=== PATIENT | male | born 1985 | race Caucasian/White ===

== ENCOUNTER 2018-06-10 08:51 | Emergency (ER) | payer OTHER, MEDICAID, SELFPAY ==
[2018-06-10 09:04] VITALS: BP 155/98; PULSE 92; RESP 22; TEMP 36.8; O2SAT 100; BMI 57.9
--- NOTE | 2018-06-10 09:28 | ED.ABDPAIN ---
HPI - Abdominal Pain General Chief Complaint: Abdominal Pain Stated Complaint: ACUTE LOWER ABDOMINAL PAIN Time Seen by Provider: 06/10/18 09:03 Source: patient Mode of arrival: ambulatory Limitations: no limitations History of Present Illness HPI narrative: Patient is a 33-year-old male who presents with mid abdominal pain. Ongoing for the last 5 days. It hurts every time he moves. No fever no nausea vomiting or change in bowel habits. Sharp and stabbing in nature. He has never experienced anything like this in the past. MD complaint: abdominal pain Onset (ago): day(s) (5) Pain Consistency: constant Location: suprapubic Severity: moderate Quality: stabbing Radiation: none Migration to: no migration Relieving factors: rest Exacerbating factors: movement Associated symptoms: denies other symptoms Related Data Home Medications Medication Instructions Recorded Confirmed No Known Home Medications 06/10/18 06/10/18 Allergies Allergy/AdvReac Type Severity Reaction Status Date / Time amoxicillin [AMOXICILLIN] Allergy Mild Verified 06/10/18 09:08 Review of Systems Review of Systems GENERAL: Denies chills, fatigue, malaise, fever, sweats, travel HEENT: Denies sinus pain, ear pain, sore throat, difficulty swallowing, neck pain RESPIRATORY: Denies dyspnea, cough, wheezing, hemoptysis, sputum. CARDIOVASCULAR: Denies chest pain, palpitations, orthopnea, edema GASTROINTESTINAL: See HPI : Denies dysuria, frequency, incontinence, hematuria, urinary retention, flank pain. MUSCULOSKELETAL: Denies weakness, joint pain, or bony pain SKIN: No rash, no erythema, no pruritus NEUROLOGIC: Denies weakness, dizziness, headache, numbness, change in speech, confusion PSYCHIATRIC: No concerning psychosocial issues. 12 point review of systems is negative except for those stated above and HPI [facility] Medical History Obesity (Acute) Social History Smoking Status: Former smoker Exam Initial Vital Signs Initial Vital Signs: Vital Signs Temperature 98.2 F 06/10/18 09:04 Pulse Rate 92 H 06/10/18 09:04 Respiratory Rate 22 06/10/18 09:04 Blood Pressure 155/98 H 06/10/18 09:04 Pulse Oximetry 100 06/10/18 09:04 GENERAL: Alert well-appearing obese male in no acute distress HEENT: Head atraumatic,EOMI, pupils reactive, face symmetric, CARDIOVASCULAR: Regular rate and rhythm without murmurs, rubs or gallops. RESPIRATORY: Breath sounds equal bilaterally, no wheezes rales or rhonchi. ABDOMEN: Obesity soft mild suprapubic pain no guarding or rebound : No CVA tenderness EXTREMITIES: Normal range of motion, no clubbing or edema. Neurovascularly intact NEUROLOGICAL: Alert and oriented x4.Normal gait and speech. Cranial nerves II through XII grossly intact. SKIN: Warm, dry, no laceration, no petechiae, no rashes or lesions. Course Orders Ordered: ED Orders 06/10/18 09:41 Complete Blood Count AUTO DIFF Stat Comprehensive Metabolic Panel Stat Lipase Stat Partial Thromboplastin Time Stat Prothrombin Time INR Stat 06/10/18 10:10 CT abdomen pelvis w con Stat Discontinued Medications Ketorolac Tromethamine (Toradol) 30 mg IV NOW ONE Stop: 06/10/18 09:54 Last Admin: 06/10/18 10:06 Dose: 30 mg Vital Signs - 8 hr 06/10/18 11:16 06/10/18 12:37 06/10/18 13:15 Pulse Rate 94 H 94 H 94 H Respiratory Rate 19 19 20 Blood Pressure 134/80 Blood Pressure [Left Wrist] 142/55 H 145/69 H Pulse Oximetry 100 97 100 MDM - Abdominal Pain Lab Data Attestation: I reviewed the patient's lab results. Result diagrams: 06/10/18 09:41 06/10/18 09:41 Lab Results 06/10/18 06/10/18 06/10/18 Range/Units 09:41 09:41 09:41 WBC 9.1 (4.5-11.0) X10^3/uL RBC 5.16 (4.5-5.9) X10^6/uL Hgb 15.0 (13.5-17.5) g/dL Hct 44.3 (41-53) % MCV 85.8 (80-100) fL MCH 29.0 (26-34) PG MCHC 33.8 (30-36) % RDW 13.1 (11.6-14.8) % Plt Count 247 (150-400) X10^3/uL Neut % (Auto) 54.9 (50-75) % Lymph % (Auto) 33.1 (25-40) % [place] % (Auto) 7.3 (3-14) % Eos % (Auto) 3.9 (2-4) % Baso % (Auto) 0.8 (0-2) % Neut # (Auto) 5000 (3582-3578) /uL PT 12.4 (10.1-12.7) SECONDS INR 1.1 (0.9-1.3) APTT 34 (26.4-36.2) SECONDS Sodium 140 (137-145) mmol/L Potassium 4.2 (3.4-5.1) mmol/L Chloride 102 (98-107) mmol/L Carbon Dioxide 27 (22-32) mmol/L BUN 11 (9-20) mg/dL Creatinine 0.70 (0.66-1.25) mg/dL Estimated GFR > 60.0 (>60) mL/min BUN/Creatinine Ratio 15.7 (6-22) Glucose 96 (70-100) mg/dL Calcium 9.5 (8.4-10.2) mg/dL Total Bilirubin 1.2 (0.2-1.3) mg/dL AST 27 (17-59) IU/L ALT 34 (21-72) IU/L Alkaline Phosphatase 32 L (38-126) U/L Total Protein 8.2 (6.3-8.2) g/dL Albumin 4.6 (3.5-5.0) g/dL Globulin 3.6 (1.7-4.1) g/dL Albumin/Globulin Ratio 1.3 (1.0-2.8) Lipase 27 (23-300) U/L Point of care testing: Urine Dip Bedside Urine Glucose Negative Bedside Urine Bilirubin - Negative Bedside Urine Ketone - Negative Urine Specific [place] 1.015 Bedside Urine Occult Blood - Negative Bedside Urine pH 8.0 Bedside Urine Protein - Negative Bedside Urine Urobilinogen +/- 1mg Bedside Urine Nitrite - Negative Bedside Urine Leukocytes - Negative Esterase Imaging Data CT scan - abdomen: Radiologist's impression: PROCEDURE: CT ABDOMEN PELVIS W CON INDICATIONS: A 33-year-old man with mid abdominal pain. TECHNIQUE: After the administration of intravenous contrast, 5 mm thick sections acquired from the diaphragm to the symphysis. 5 mm coronal and sagittal reformats were acquired. For radiation dose reduction, the following was used: automated exposure control, adjustment of mA and/or kV according to patient size. COMPARISON: None. FINDINGS: Image quality: Excellent. ABDOMEN: Lung bases: Lung bases are clear. Heart size is normal. Solid organs: There is diffuse hepatic fatty infiltration. Liver is normal in size and enhancement. Gallbladder is normal. Biliary system is non dilated. Pancreas enhances normally. Spleen is normal in size and enhancement. No adrenal nodules. Kidneys demonstrate normal size and enhancement, without hydronephrosis. Peritoneum and bowel: There is a 1.5 x 2.1 cm oval-shaped fat lobule demonstrating peripheral hyperdensity and enhancement with associated inflammatory stranding, likely caused by omental infarct (fat necrosis of omentum). A differential diagnosis is epiploic appendagitis or less likely, acute diverticulitis. Bowel loops demonstrate normal wall thickness and caliber. No free fluid or air. Nodes and vessels: No retroperitoneal or mesenteric adenopathy by size criteria. Aorta and inferior vena cava are normal in size. Miscellaneous: No ventral hernias. PELVIS: Genitourinary: Bladder wall thickness is normal. Miscellaneous: No inguinal hernias or adenopathy. Bones: No suspicious bony lesions. No vertebral body compression fractures. IMPRESSION: 1. There is a 1.5 x 2.1 cm oval-shaped fat lobule with peripheral hyperdensity/enhancement and mild inflammatory stranding. The CT findings are consistent with omental infarct. A differential diagnosis is epiploic appendagitis, or less likely, acute diverticulitis. Dictated by: Mary Faulkner M.D. on 06/10/2018 at 11:17 MDM Narrative Medical decision making narrative: Dr. Ladd called bowel CT results. At this time patient can be managed with pain medication at home no need for surgery. He has been in the ED to see and evaluate patient. Discharge Plan Departure Patient Disposition: Home Clinical Impression: Omental infarction Discharge Date/Time: 06/10/18 13:15 Interventions: ED Discharge Assessment Last Done: 06/10/18 13:15 Instructions: DI for Abdominal Pain-Adult Activity Restrictions/Additional Instructions: *You have been diagnosed with mental infarction *What to do: Anti-inflammatory medications, increase fluids, rest *Continue to take medications as directed Motrin 800 mg every 8 hr if needed for pain *Follow up with your primary care provider in 2-3 days *Return to ER if you should have increased pain, fever or any new, worsening or concerning symptoms Prescriptions: No Action No Known Home Medications RF: 0 Referrals: Jorge Carlson MD [Primary Care Provider] -
[2018-06-10 09:49] LABS: Add Manual Diff / Slide Review NO; Basophils Percent Auto 0.8 % (0-2); Eosinophils Percent Auto 3.9 % (2-4); Hematocrit 44.3 % (41-53); Lymphocytes Percent Auto 33.1 % (25-40); Mean Corpuscular HGB Conc 33.8 % (30-36); Mean Corpuscular Volume 85.8 fL (80-100); Monocytes Percent Auto 7.3 % (3-14); Neutrophils Absolute Auto 5000 /uL (1500-7000); Neutrophils Percent Auto 54.9 % (50-75); Platelet Count 247 X10^3/uL (150-400); Red Blood Cell Count 5.16 X10^6/uL (4.5-5.9); Red Cell Distribution Width 13.1 % (11.6-14.8); White Blood Cell Count 9.1 X10^3/uL (4.5-11.0)
[2018-06-10 09:54] LABS: INR 1.1 (0.9-1.3); Prothrombin Time 12.4 SECONDS (10.1-12.7)
[2018-06-10 09:56] LABS: PTT Partial Thromboplastin Tim 34 SECONDS (26.4-36.2)
[2018-06-10 09:58] LABS: Alanine Aminotransferase 34 IU/L (21-72); Albumin 4.6 g/dL (3.5-5.0); Albumin Globulin Ratio 1.3 (1.0-2.8); Alkaline Phosphatase 32 U/L (38-126); BUN Creatinine Ratio 15.7 (6-22); Bilirubin Total 1.2 mg/dL (0.2-1.3); Blood Urea Nitrogen 11 mg/dL (9-20); Calcium 9.5 mg/dL (8.4-10.2); Carbon Dioxide 27 mmol/L (22-32); Chloride 102 mmol/L (98-107); Estimated Glomerular Filt Rate > 60.0 mL/min (>60); Globulin 3.6 g/dL (1.7-4.1); Glucose 96 mg/dL (70-100); HEMOLYSIS 53 (0-50); Lipase 27 U/L (23-300); Sodium 140 mmol/L (137-145); Total Protein 8.2 g/dL (6.3-8.2)
[2018-06-10 09:59] LABS: Aspartate Aminotransferase 27 IU/L (17-59); Potassium 4.2 mmol/L (3.4-5.1)
[2018-06-10] MEDS: KETOROLAC 60 MG/2 ML VIAL 30 MG IV (10:06)
--- NOTE | 2018-06-10 10:10 | DI.CT.S_ITS ---
PROCEDURE: CT ABDOMEN PELVIS W CON INDICATIONS: A 33-year-old man with mid abdominal pain. TECHNIQUE: After the administration of intravenous contrast, 5 mm thick sections acquired from the diaphragm to the symphysis. 5 mm coronal and sagittal reformats were acquired. For radiation dose reduction, the following was used: automated exposure control, adjustment of mA and/or kV according to patient size. COMPARISON: None. FINDINGS: Image quality: Excellent. ABDOMEN: Lung bases: Lung bases are clear. Heart size is normal. Solid organs: There is diffuse hepatic fatty infiltration. Liver is normal in size and enhancement. Gallbladder is normal. Biliary system is non dilated. Pancreas enhances normally. Spleen is normal in size and enhancement. No adrenal nodules. Kidneys demonstrate normal size and enhancement, without hydronephrosis. Peritoneum and bowel: There is a 1.5 x 2.1 cm oval-shaped fat lobule demonstrating peripheral hyperdensity and enhancement with associated inflammatory stranding, likely caused by omental infarct (fat necrosis of omentum). A differential diagnosis is epiploic appendagitis or less likely, acute diverticulitis. Bowel loops demonstrate normal wall thickness and caliber. No free fluid or air. Nodes and vessels: No retroperitoneal or mesenteric adenopathy by size criteria. Aorta and inferior vena cava are normal in size. Miscellaneous: No ventral hernias. PELVIS: Genitourinary: Bladder wall thickness is normal. Miscellaneous: No inguinal hernias or adenopathy. Bones: No suspicious bony lesions. No vertebral body compression fractures. IMPRESSION: 1. There is a 1.5 x 2.1 cm oval-shaped fat lobule with peripheral hyperdensity/enhancement and mild inflammatory stranding. The CT findings are consistent with omental infarct. A differential diagnosis is epiploic appendagitis, or less likely, acute diverticulitis. Dictated by: Mary Faulkner M.D. on 06/10/2018 at 11:17 Approved by: Mary Faulkner M.D. on 06/10/2018 at 11:34
[2018-06-10 11:16] VITALS: BP 142/55; PULSE 94; RESP 19; O2SAT 100
[2018-06-10 12:37] VITALS: BP 145/69; PULSE 94; RESP 19; O2SAT 97
[2018-06-10 13:15] VITALS: BP 134/80; PULSE 94; RESP 20; O2SAT 100
--- NOTE | 2018-06-10 22:08 | P.CONS_ITS ---
History of Present Illness Date Patient Seen: 06/10/18 Time Patient Seen: 12:02 Chief complaint: ACUTE LOWER ABDOMINAL PAIN Reason for consult: Abdominal pain Requesting provider: Nicole Johnson Narrative: Patient is gentleman with a 3 day history of abdominal pain. Began in left lower quadrant and move slightly toward the midline across the pelvis. He has never had this pain before. He has been eating fine having bowel movements. He thought he was constipated so actually took some laxatives and has had multiple bowel movements. No blood in his stool. Appetite is good. No hematemesis. [facility] Medical History Obesity (Chronic) Social History Smoking Status: Former smoker Meds Home Medications Medication Instructions Recorded Confirmed Type No Known Home Medications 06/10/18 06/10/18 History Allergies Allergy/AdvReac Type Severity Reaction Status Date / Time amoxicillin [AMOXICILLIN] Allergy Mild Verified 06/10/18 09:08 Review of Systems Review of Systems No cardiac symptoms no asthma. Some exertional shortness of breath. No dysuria. No seizures or blackouts. Exam Vital Signs (past 8 hours): Oxygen Delivery Method Room Air Narrative Exam Narrative: Very overweight gentleman in no apparent distress. His abdomen is soft nontender without mass. No obvious hernias. The area that was tender is now not tender after a nonsteroidal pain medication injection. Objective Imaging CT scan - abdomen: My impression: The small amount of inflamed tissue adjacent to the colon in the left lower quadrant. This is an isolated finding. No other obvious acute abnormalities. Radiologist's impression: Suggesting a twisted epiploica. Labs Result Diagrams: 06/10/18 09:41 06/10/18 09:41 Labs: Laboratory Results - last 24 hr 06/10/18 06/10/18 06/10/18 09:41 09:41 09:41 WBC 9.1 RBC 5.16 Hgb 15.0 Hct 44.3 MCV 85.8 MCH 29.0 MCHC 33.8 RDW 13.1 Plt Count 247 Neut % (Auto) 54.9 Lymph % (Auto) 33.1 [place] % (Auto) 7.3 Eos % (Auto) 3.9 Baso % (Auto) 0.8 Neut # (Auto) 5000 PT 12.4 INR 1.1 APTT 34 Sodium 140 Potassium 4.2 Chloride 102 Carbon Dioxide 27 BUN 11 Creatinine 0.70 Estimated GFR > 60.0 BUN/Creatinine Ratio 15.7 Glucose 96 Calcium 9.5 Total Bilirubin 1.2 AST 27 ALT 34 Alkaline Phosphatase 32 L Total Protein 8.2 Albumin 4.6 Globulin 3.6 Albumin/Globulin Ratio 1.3 Lipase 27 Assessment & Plan Plan: Assessment/Plan Narrative: Patient is a gentleman with 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 He is very high risk of problems with any operation due to his enormous size. Any laparoscopic or open procedure is most likely going to result in our ventral hernia. His white count is normal and he is presently pain free. It is hard for me to recommend removing what is probably a simple twisted piece of fat that the body will reabsorb. Therefore I recommend observation. Can be discharged home. If his symptoms worsen he can return.
== END 2018-06-10 13:15 | disposition home or self-care (01) ==
PROVIDERS: Emergency Provider Emergency Medicine; Family Provider Family Medicine; PCP Family Medicine
DX: K55.069 Acute infarction of intestine, part and extent unspecified (principal)
CPT/HCPCS: 36591; 74177; 80053; 81003; 83690; 85025; 85610; 85730; 96374; 99282; 99285; J1885; Q9967

== ENCOUNTER 2018-11-30 14:02 | Emergency (ER) | payer OTHER, MEDICAID, SELFPAY ==
[2018-11-30 14:09] VITALS: BP 143/83; PULSE 91; RESP 18; TEMP 36.5; O2SAT 100
--- NOTE | 2018-11-30 14:35 | DI.RAD.S_ITS ---
PROCEDURE: XR CHEST 1V INDICATIONS: chest pain TECHNIQUE: One view of the chest was acquired. COMPARISON: None. FINDINGS: Surgical changes and devices: None. Lungs and pleura: Lungs are clear. No pleural effusions or pneumothorax. Mediastinum: Mediastinal contours appear normal. Heart size is normal. Bones and chest wall: No suspicious bony lesions. Overlying soft tissues appear unremarkable. IMPRESSION: No acute cardiopulmonary findings. Dictated by: Kenia Watters M.D. on 11/30/2018 at 15:36 Approved by: Kenia Watters M.D. on 11/30/2018 at 15:37
[2018-11-30 15:06] LABS: Add Manual Diff / Slide Review NO; Basophils Absolute Auto 0 /uL (0-100); Basophils Percent Auto 0.5 % (0-2); Eosinophils Absolute Auto 400 /uL (0-450); Eosinophils Percent Auto 4.9 % (2-4); Hemoglobin 13.4 g/dL (13.5-17.5); INR 1.1 (0.9-1.3); Lymphocytes Absolute Auto 2400 /uL (1100-4500); Lymphocytes Percent Auto 28.9 % (25-40); Mean Corpuscular HGB Conc 32.7 % (30-36); Mean Corpuscular Volume 85.7 fL (80-100); Monocytes Absolute Auto 600 /uL (0-900); Monocytes Percent Auto 7.5 % (3-14); Neutrophils Absolute Auto 4800 /uL (1500-7000); Neutrophils Percent Auto 58.2 % (50-75); Platelet Count 210 X10^3/uL (150-400); Prothrombin Time 12.2 SECONDS (10.1-12.7); Red Blood Cell Count 4.78 X10^6/uL (4.5-5.9); Red Cell Distribution Width 13.3 % (11.6-14.8); White Blood Cell Count 8.3 X10^3/uL (4.5-11.0)
[2018-11-30 15:08] LABS: PTT Partial Thromboplastin Tim 34 SECONDS (26.4-36.2)
[2018-11-30 15:12] LABS: Alanine Aminotransferase 20 IU/L (21-72); Albumin 4.1 g/dL (3.5-5.0); Albumin Globulin Ratio 1.4 (1.0-2.8); Alkaline Phosphatase 35 U/L (38-126); Aspartate Aminotransferase 20 IU/L (17-59); BUN Creatinine Ratio 22.9 (6-22); Bilirubin Total 0.7 mg/dL (0.2-1.3); Blood Urea Nitrogen 16 mg/dL (9-20); Calcium 9.1 mg/dL (8.4-10.2); Carbon Dioxide 29 mmol/L (22-32); Chloride 103 mmol/L (98-107); Creatine Kinase 143 U/L (55-170); Estimated Glomerular Filt Rate > 60.0 mL/min (>60); Glucose 93 mg/dL (70-100); HEMOLYSIS < 15 (0-50); Lipase 32 U/L (23-300); Potassium 3.8 mmol/L (3.4-5.1); Sodium 141 mmol/L (137-145); Total Protein 7.1 g/dL (6.3-8.2)
[2018-11-30 15:23] LABS: Troponin I < 0.012 ng/mL (0.01-0.034)
[2018-11-30 15:27] LABS: CKMB % Relative Index 0.8 % (1.5-5.0); Creatine Kinase MB 1.16 ng/mL (<2.37)
[2018-11-30 16:24] VITALS: BP 150/82; PULSE 70; RESP 18; O2SAT 100
--- NOTE | 2018-11-30 17:46 | ED.NEUROSD ---
HPI - Neuro Symptoms/Deficit <Maira Saavedra PA-C - Last Filed: 11/30/18 21:14> General Chief Complaint: Neuro Symptoms/Deficit Stated Complaint: numbness and tingling of right hand Time Seen by Provider: 11/30/18 17:33 Source: patient Mode of arrival: ambulatory Limitations: no limitations History of Present Illness HPI Narrative: This 33-year-old male comes to ED secondary to acute onset of numb, tingly sensation in his left outer arm that radiated from his elbow into his 4th and 5th fingers the. 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 He was chopping vegetables at the time this occurred. He is right-handed. He denies any weakness or pain with this. States it is not unusual for him to have some numbness, usually able to shake the wrist or arm and rested a bit and it resolves, but today lasted longer, and he also started to feel faint [place]. [place] did not think he needed urgent transport but advised coming over on the [place]. He states that he has been working multiple job several days in a row and did not have anything to eat all day prior to onset of symptoms. He did not have any chest pain, palpitations, nausea or vomiting. No pain or swelling in the extremities. No difficulty breathing. Denies history of blood clots. He has not had any recent illness or fever. He does have remote history of high blood pressure that resolved with lifestyle modification including smoking cessation, no longer on medication for this. He is feeling well now. He never had any difficulty with speech or coordination. On Anticoagulants: Yes (ASA 325 daily) Related Data Home Medications Medication Instructions Recorded Confirmed aspirin 325 mg PO DAILY 11/30/18 11/30/18 buprenorphine-naloxone [Suboxone] 1 film BUCCAL DAILY 11/30/18 11/30/18 Allergies Allergy/AdvReac Type Severity Reaction Status Date / Time amoxicillin [AMOXICILLIN] Allergy Mild Verified 11/30/18 14:13 Review of Systems <MARY Wu Last Filed: 11/30/18 21:14> Review of Systems ROS Unobtainable: All systems reviewed & are unremarkable except as noted in HPI and below PFSH <MARY Wu Last Filed: 11/30/18 21:14> Medical History (Updated 11/30/18 @ 18:29 by Maira Saavedra PA-C) Obesity (Chronic) H/O: HTN (hypertension) (Resolved) Surgical History (Updated 11/30/18 @ 18:29 by Maira Saavedra PA-C) No history of previous surgery (Chronic) Social History Smoking Status: Former smoker Social History Smoking Status: Former smoker Exam <Maira Saavedra PA-C - Last Filed: 11/30/18 21:14> Narrative Exam Narrative: GENERAL APPEARANCE: Patient sitting comfortably, in no distress. HEENT: PERRL, EOMI, normal oropharynx NECK/THYROID: Neck supple, no JVD. LUNGS: Clear to auscultation bilaterally. HEART: Regular rate and rhythm without murmur, normal S1, S2, no S3 or S4. EXTREMITIES: No edema. UEs warm and pink NEUROLOGIC: Alert and oriented, normal speech, and coordination. + Tinel's sign LUE, ulnar distribution MS: No joint effusion. Mild tenderness to palpation left elbow in the ulnar groove. Full range of motion of the left elbow, wrist, and fingers. [employer] strength 5/5 bilaterally. Biceps/triceps and shoulder strength 5/5 bilaterally Initial Vital Signs Initial Vital Signs: Vital Signs Temperature 97.7 F 11/30/18 14:09 Pulse Rate 91 H 11/30/18 14:09 Respiratory Rate 18 11/30/18 14:09 Blood Pressure 143/83 H 11/30/18 14:09 Pulse Oximetry 100 11/30/18 14:09 <Nicole Johnson DO - Last Filed: 12/01/18 08:17> Initial Vital Signs Initial Vital Signs: Vital Signs Temperature 97.7 F 11/30/18 14:09 Pulse Rate 91 H 11/30/18 14:09 Respiratory Rate 18 11/30/18 14:09 Blood Pressure 143/83 H 11/30/18 14:09 Pulse Oximetry 100 11/30/18 14:09 Course <Maira Saavedra PA-C - Last Filed: 11/30/18 21:14> Additional Information: Patient does not have any abnormality on exam today aside from some reproduction of symptoms with manipulation of the left ulnar nerve distribution. Suspect his lightheadedness was secondary to working long hours and not eating. No evidence of cardiovascular abnormality on history or exam, no acute findings on lab work. He will start wearing his immobilizer splint again. He agreed to return if any acutely worsening symptoms again or new symptoms such as chest pain, dyspnea, etc. Orders Ordered: ED Orders 11/30/18 14:35 XR chest 1V Stat EKG-12 Lead Stat 11/30/18 14:51 Complete Blood Count AUTO DIFF Stat Comprehensive Metabolic Panel Stat Lipase Stat Partial Thromboplastin Time Stat Prothrombin Time INR Stat Troponin & CK Cardiac Panel Stat Vital Signs - 8 hr 11/30/18 14:09 11/30/18 16:24 Temperature 97.7 F Pulse Rate 91 H 70 Respiratory Rate 18 18 Blood Pressure 143/83 H Blood Pressure [Left Arm] 150/82 H Pulse Oximetry 100 100 <Nicole Johnson DO - Last Filed: 12/01/18 08:17> Orders Ordered: ED Orders 11/30/18 14:35 XR chest 1V Stat EKG-12 Lead Stat 11/30/18 14:51 Complete Blood Count AUTO DIFF Stat Comprehensive Metabolic Panel Stat Lipase Stat Partial Thromboplastin Time Stat Prothrombin Time INR Stat Troponin & CK Cardiac Panel Stat Vital Signs - 8 hr 11/30/18 14:09 11/30/18 16:24 Temperature 97.7 F Pulse Rate 91 H 70 Respiratory Rate 18 18 Blood Pressure 143/83 H Blood Pressure [Left Arm] 150/82 H Pulse Oximetry 100 100 MDM - Neuro Symptoms/Deficit <Maira Saavedra PA-C - Last Filed: 11/30/18 21:14> Lab Data Attestation: I reviewed the patient's lab results. Result diagrams: 11/30/18 14:51 11/30/18 14:51 Lab Results 11/30/18 11/30/18 11/30/18 Range/Units 14:51 14:51 14:51 WBC 8.3 (4.5-11.0) X10^3/uL RBC 4.78 (4.5-5.9) X10^6/uL Hgb 13.4 L (13.5-17.5) g/dL Hct 41.0 (41-53) % MCV 85.7 (80-100) fL MCH 28.0 (26-34) PG MCHC 32.7 (30-36) % RDW 13.3 (11.6-14.8) % Plt Count 210 (150-400) X10^3/uL Neut % (Auto) 58.2 (50-75) % Lymph % (Auto) 28.9 (25-40) % [place] % (Auto) 7.5 (3-14) % Eos % (Auto) 4.9 H (2-4) % Baso % (Auto) 0.5 (0-2) % Neut # (Auto) 4800 (7563-1832) /uL Lymph # (Auto) 2400 (2011-5173) /uL [place] # (Auto) 600 (0-900) /uL Eos # (Auto) 400 (0-450) /uL Baso # (Auto) 0 (0-100) /uL PT 12.2 (10.1-12.7) SECONDS INR 1.1 (0.9-1.3) APTT 34 (26.4-36.2) SECONDS Sodium 141 (137-145) mmol/L Potassium 3.8 (3.4-5.1) mmol/L Chloride 103 (98-107) mmol/L Carbon Dioxide 29 (22-32) mmol/L BUN 16 (9-20) mg/dL Creatinine 0.70 (0.66-1.25) mg/dL Estimated GFR > 60.0 (>60) mL/min BUN/Creatinine Ratio 22.9 H (6-22) Glucose 93 (70-100) mg/dL Calcium 9.1 (8.4-10.2) mg/dL Total Bilirubin 0.7 (0.2-1.3) mg/dL AST 20 (17-59) IU/L ALT 20 L (21-72) IU/L Alkaline Phosphatase 35 L (38-126) U/L Total Creatine Kinase 143 (55-170) U/L CK-MB (CK-2) 1.16 (<2.37) ng/mL CK-MB (CK-2) Rel Index 0.8 L (1.5-5.0) % Troponin I < 0.012 (0.01-0.034) ng/mL Total Protein 7.1 (6.3-8.2) g/dL Albumin 4.1 (3.5-5.0) g/dL Globulin 3.0 (1.7-4.1) g/dL Albumin/Globulin Ratio 1.4 (1.0-2.8) Lipase 32 (23-300) U/L Imaging Data Chest x-ray: Radiologist's impression: [address] [address] XRay Report Signed Patient: Chandan Jin FMR#: [id number] : 1985Acct:[id number] Age/Sex: te of Service: 11/30/18 Loc: ED Accession Number: [id number] Procedure: XR chest 1V Ordering Provider: Nicole Johnson D.O. PROCEDURE: XR CHEST 1V INDICATIONS: chest pain TECHNIQUE: One view of the chest was acquired. COMPARISON: None. FINDINGS: Surgical changes and devices: None. Lungs and pleura: Lungs are clear. No pleural effusions or pneumothorax. Mediastinum: Mediastinal contours appear normal. Heart size is normal. Bones and chest wall: No suspicious bony lesions. Overlying soft tissues appear unremarkable. IMPRESSION: No acute cardiopulmonary findings. Dictated by: Kenia Watters M.D. on 11/30/2018 at 15:36 Approved by: Kenia Watters M.D. on 11/30/2018 at 15:37 <Nicole Johnson DO - Last Filed: 12/01/18 08:17> Lab Data Lab Results 11/30/18 11/30/18 11/30/18 Range/Units 14:51 14:51 14:51 WBC 8.3 (4.5-11.0) X10^3/uL RBC 4.78 (4.5-5.9) X10^6/uL Hgb 13.4 L (13.5-17.5) g/dL Hct 41.0 (41-53) % MCV 85.7 (80-100) fL MCH 28.0 (26-34) PG MCHC 32.7 (30-36) % RDW 13.3 (11.6-14.8) % Plt Count 210 (150-400) X10^3/uL Neut % (Auto) 58.2 (50-75) % Lymph % (Auto) 28.9 (25-40) % [place] % (Auto) 7.5 (3-14) % Eos % (Auto) 4.9 H (2-4) % Baso % (Auto) 0.5 (0-2) % Neut # (Auto) 4800 (3559-2413) /uL Lymph # (Auto) 2400 (1152-8443) /uL [place] # (Auto) 600 (0-900) /uL Eos # (Auto) 400 (0-450) /uL Baso # (Auto) 0 (0-100) /uL PT 12.2 (10.1-12.7) SECONDS INR 1.1 (0.9-1.3) APTT 34 (26.4-36.2) SECONDS Sodium 141 (137-145) mmol/L Potassium 3.8 (3.4-5.1) mmol/L Chloride 103 (98-107) mmol/L Carbon Dioxide 29 (22-32) mmol/L BUN 16 (9-20) mg/dL Creatinine 0.70 (0.66-1.25) mg/dL Estimated GFR > 60.0 (>60) mL/min BUN/Creatinine Ratio 22.9 H (6-22) Glucose 93 (70-100) mg/dL Calcium 9.1 (8.4-10.2) mg/dL Total Bilirubin 0.7 (0.2-1.3) mg/dL AST 20 (17-59) IU/L ALT 20 L (21-72) IU/L Alkaline Phosphatase 35 L (38-126) U/L Total Creatine Kinase 143 (55-170) U/L CK-MB (CK-2) 1.16 (<2.37) ng/mL CK-MB (CK-2) Rel Index 0.8 L (1.5-5.0) % Troponin I < 0.012 (0.01-0.034) ng/mL Total Protein 7.1 (6.3-8.2) g/dL Albumin 4.1 (3.5-5.0) g/dL Globulin 3.0 (1.7-4.1) g/dL Albumin/Globulin Ratio 1.4 (1.0-2.8) Lipase 32 (23-300) U/L Discharge Plan Departure Patient Disposition: Home Clinical Impression: Tendonitis of elbow or forearm Discharge Date/Time: 11/30/18 18:14 Interventions: ED Discharge Assessment Last Done: 11/30/18 18:14 Instructions: DI for Tendinitis Activity Restrictions/Additional Instructions: Your lab testing did not show any acute problem today, and after discussion with you I suspect that your lightheadedness was due to long days of working and not having any nourishment today. Your tingling/numbness in your left forearm is consistent with tendinitis, like you have had in the radial nerve before (now in the ulnar nerve). Please start wearing or wrist immobilizer splint and follow up at your primary care clinic to determine whether further treatment may be needed. As we talked about, you should return in the interim if you have new symptoms such as acute weakness, chest pain, difficulty breathing or if you do pass out when you are eating and drinking normally. Prescriptions: No Action aspirin 325 mg Tablet 325 mg PO DAILY RF: 0 buprenorphine-naloxone [Suboxone] 8-2 mg Film 1 film BUCCAL DAILY RF: 0 Referrals: Jorge Carlson MD [Primary Care Provider] - <Nicole Johnson DO - Last Filed: 12/01/18 08:17> Cosign ED Attending Berthaature Attestation: I was immediately available in the department for consultation. Documentation has been reviewed. I agree with assessment and plan.
--- NOTE | 2018-11-30 18:05 | ED_ITS ---
HPI - Neuro Symptoms/Deficit <Maira Saavedra PA-C - Last Filed: 11/30/18 21:14> General Chief Complaint: Neuro Symptoms/Deficit Stated Complaint: numbness and tingling of right hand Time Seen by Provider: 11/30/18 17:33 Source: patient Mode of arrival: ambulatory Limitations: no limitations History of Present Illness HPI Narrative: This 33-year-old male comes to ED secondary to acute onset of numb, tingly sensation in his left outer arm that radiated from his elbow into his 4th and 5th fingers the. 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 He was chopping vegetables at the time this occurred. He is right-handed. He denies any weakness or pain with this. States it is not unusual for him to have some numbness, usually able to shake the wrist or arm and rested a bit and it resolves, but today lasted longer, and he also started to feel faint and [place]oozy. [place] and did not think he needed urgent transport but advised coming over on the [place]. He states that he has been working multiple job several days in a row and did not have anything to eat all day prior to onset of symptoms. He did not have any chest pain, palpitations, nausea or vomiting. No pain or swelling in the extremities. No difficulty breathing. Denies history of blood clots. He has not had any recent illness or fever. He does have remote history of high blood pressure that resolved with lifestyle modification including smoking cessation, no longer on medication for this. He is feeling well now. He never had any difficulty with speech or coordination. On Anticoagulants: Yes (ASA 325 daily) Related Data Home Medications Medication Instructions Recorded Confirmed aspirin 325 mg PO DAILY 11/30/18 11/30/18 buprenorphine-naloxone [Suboxone] 1 film BUCCAL DAILY 11/30/18 11/30/18 Allergies Allergy/AdvReac Type Severity Reaction Status Date / Time amoxicillin [AMOXICILLIN] Allergy Mild Verified 11/30/18 14:13 Review of Systems <MARY Wu Last Filed: 11/30/18 21:14> Review of Systems ROS Unobtainable: All systems reviewed & are unremarkable except as noted in HPI and below PFSH <MARY Wu Last Filed: 11/30/18 21:14> Medical History (Updated 11/30/18 @ 18:29 by Maira Saavedra PA-C) Obesity (Chronic) H/O: HTN (hypertension) (Resolved) Surgical History (Updated 11/30/18 @ 18:29 by Maira Saavedra PA-C) No history of previous surgery (Chronic) Social History Smoking Status: Former smoker Social History Smoking Status: Former smoker Exam <Maira Saavedra PA-C - Last Filed: 11/30/18 21:14> Narrative Exam Narrative: GENERAL APPEARANCE: Patient sitting comfortably, in no distress. HEENT: PERRL, EOMI, normal oropharynx NECK/THYROID: Neck supple, no JVD. LUNGS: Clear to auscultation bilaterally. HEART: Regular rate and rhythm without murmur, normal S1, S2, no S3 or S4. EXTREMITIES: No edema. UEs warm and pink NEUROLOGIC: Alert and oriented, normal speech, and coordination. + Tinel's sign LUE, ulnar distribution MS: No joint effusion. Mild tenderness to palpation left elbow in the ulnar groove. Full range of motion of the left elbow, wrist, and fingers. [employer] strength 5/5 bilaterally. Biceps/triceps and shoulder strength 5/5 bilaterally Initial Vital Signs Initial Vital Signs: Vital Signs Temperature 97.7 F 11/30/18 14:09 Pulse Rate 91 H 11/30/18 14:09 Respiratory Rate 18 11/30/18 14:09 Blood Pressure 143/83 H 11/30/18 14:09 Pulse Oximetry 100 11/30/18 14:09 <Nicole Johnson DO - Last Filed: 12/01/18 08:17> Initial Vital Signs Initial Vital Signs: Vital Signs Temperature 97.7 F 11/30/18 14:09 Pulse Rate 91 H 11/30/18 14:09 Respiratory Rate 18 11/30/18 14:09 Blood Pressure 143/83 H 11/30/18 14:09 Pulse Oximetry 100 11/30/18 14:09 Course <Maira Saavedra PA-C - Last Filed: 11/30/18 21:14> Additional Information: Patient does not have any abnormality on exam today aside from some reproduction of symptoms with manipulation of the left ulnar nerve distribution. Suspect his lightheadedness was secondary to working long hours and not eating. No evidence of cardiovascular abnormality on history or exam, no acute findings on lab work. He will start wearing his immobilizer splint again. He agreed to return if any acutely worsening symptoms again or new symptoms such as chest pain, dyspnea, etc. Orders Ordered: ED Orders 11/30/18 14:35 XR chest 1V Stat EKG-12 Lead Stat 11/30/18 14:51 Complete Blood Count AUTO DIFF Stat Comprehensive Metabolic Panel Stat Lipase Stat Partial Thromboplastin Time Stat Prothrombin Time INR Stat Troponin & CK Cardiac Panel Stat Vital Signs - 8 hr 11/30/18 14:09 11/30/18 16:24 Temperature 97.7 F Pulse Rate 91 H 70 Respiratory Rate 18 18 Blood Pressure 143/83 H Blood Pressure [Left Arm] 150/82 H Pulse Oximetry 100 100 <Nicole Johnson DO - Last Filed: 12/01/18 08:17> Orders Ordered: ED Orders 11/30/18 14:35 XR chest 1V Stat EKG-12 Lead Stat 11/30/18 14:51 Complete Blood Count AUTO DIFF Stat Comprehensive Metabolic Panel Stat Lipase Stat Partial Thromboplastin Time Stat Prothrombin Time INR Stat Troponin & CK Cardiac Panel Stat Vital Signs - 8 hr 11/30/18 14:09 11/30/18 16:24 Temperature 97.7 F Pulse Rate 91 H 70 Respiratory Rate 18 18 Blood Pressure 143/83 H Blood Pressure [Left Arm] 150/82 H Pulse Oximetry 100 100 MDM - Neuro Symptoms/Deficit <Maira Saavedra PA-C - Last Filed: 11/30/18 21:14> Lab Data Attestation: I reviewed the patient's lab results. Result diagrams: 11/30/18 14:51 11/30/18 14:51 Lab Results 11/30/18 11/30/18 11/30/18 Range/Units 14:51 14:51 14:51 WBC 8.3 (4.5-11.0) X10^3/uL RBC 4.78 (4.5-5.9) X10^6/uL Hgb 13.4 L (13.5-17.5) g/dL Hct 41.0 (41-53) % MCV 85.7 (80-100) fL MCH 28.0 (26-34) PG MCHC 32.7 (30-36) % RDW 13.3 (11.6-14.8) % Plt Count 210 (150-400) X10^3/uL Neut % (Auto) 58.2 (50-75) % Lymph % (Auto) 28.9 (25-40) % [place] % (Auto) 7.5 (3-14) % Eos % (Auto) 4.9 H (2-4) % Baso % (Auto) 0.5 (0-2) % Neut # (Auto) 4800 (1721-3851) /uL Lymph # (Auto) 2400 (2104-2792) /uL [place] # (Auto) 600 (0-900) /uL Eos # (Auto) 400 (0-450) /uL Baso # (Auto) 0 (0-100) /uL PT 12.2 (10.1-12.7) SECONDS INR 1.1 (0.9-1.3) APTT 34 (26.4-36.2) SECONDS Sodium 141 (137-145) mmol/L Potassium 3.8 (3.4-5.1) mmol/L Chloride 103 (98-107) mmol/L Carbon Dioxide 29 (22-32) mmol/L BUN 16 (9-20) mg/dL Creatinine 0.70 (0.66-1.25) mg/dL Estimated GFR > 60.0 (>60) mL/min BUN/Creatinine Ratio 22.9 H (6-22) Glucose 93 (70-100) mg/dL Calcium 9.1 (8.4-10.2) mg/dL Total Bilirubin 0.7 (0.2-1.3) mg/dL AST 20 (17-59) IU/L ALT 20 L (21-72) IU/L Alkaline Phosphatase 35 L (38-126) U/L Total Creatine Kinase 143 (55-170) U/L CK-MB (CK-2) 1.16 (<2.37) ng/mL CK-MB (CK-2) Rel Index 0.8 L (1.5-5.0) % Troponin I < 0.012 (0.01-0.034) ng/mL Total Protein 7.1 (6.3-8.2) g/dL Albumin 4.1 (3.5-5.0) g/dL Globulin 3.0 (1.7-4.1) g/dL Albumin/Globulin Ratio 1.4 (1.0-2.8) Lipase 32 (23-300) U/L Imaging Data Chest x-ray: Radiologist's impression: [address] [address] XRay Report Signed Patient: Chandan Jin FMR#: [id number] : 1985Acct:[id number] Age/Sex: te of Service: 11/30/18 Loc: ED Accession Number: [id number] Procedure: XR chest 1V Ordering Provider: Nicole Johnson D.O. PROCEDURE: XR CHEST 1V INDICATIONS: chest pain TECHNIQUE: One view of the chest was acquired. COMPARISON: None. FINDINGS: Surgical changes and devices: None. Lungs and pleura: Lungs are clear. No pleural effusions or pneumothorax. Mediastinum: Mediastinal contours appear normal. Heart size is normal. Bones and chest wall: No suspicious bony lesions. Overlying soft tissues appear unremarkable. IMPRESSION: No acute cardiopulmonary findings. Dictated by: Kenia Watters M.D. on 11/30/2018 at 15:36 Approved by: Kenia Watters M.D. on 11/30/2018 at 15:37 <Nicole Johnson DO - Last Filed: 12/01/18 08:17> Lab Data Lab Results 11/30/18 11/30/18 11/30/18 Range/Units 14:51 14:51 14:51 WBC 8.3 (4.5-11.0) X10^3/uL RBC 4.78 (4.5-5.9) X10^6/uL Hgb 13.4 L (13.5-17.5) g/dL Hct 41.0 (41-53) % MCV 85.7 (80-100) fL MCH 28.0 (26-34) PG MCHC 32.7 (30-36) % RDW 13.3 (11.6-14.8) % Plt Count 210 (150-400) X10^3/uL Neut % (Auto) 58.2 (50-75) % Lymph % (Auto) 28.9 (25-40) % [place] % (Auto) 7.5 (3-14) % Eos % (Auto) 4.9 H (2-4) % Baso % (Auto) 0.5 (0-2) % Neut # (Auto) 4800 (8460-8938) /uL Lymph # (Auto) 2400 (3811-4252) /uL [place] # (Auto) 600 (0-900) /uL Eos # (Auto) 400 (0-450) /uL Baso # (Auto) 0 (0-100) /uL PT 12.2 (10.1-12.7) SECONDS INR 1.1 (0.9-1.3) APTT 34 (26.4-36.2) SECONDS Sodium 141 (137-145) mmol/L Potassium 3.8 (3.4-5.1) mmol/L Chloride 103 (98-107) mmol/L Carbon Dioxide 29 (22-32) mmol/L BUN 16 (9-20) mg/dL Creatinine 0.70 (0.66-1.25) mg/dL Estimated GFR > 60.0 (>60) mL/min BUN/Creatinine Ratio 22.9 H (6-22) Glucose 93 (70-100) mg/dL Calcium 9.1 (8.4-10.2) mg/dL Total Bilirubin 0.7 (0.2-1.3) mg/dL AST 20 (17-59) IU/L ALT 20 L (21-72) IU/L Alkaline Phosphatase 35 L (38-126) U/L Total Creatine Kinase 143 (55-170) U/L CK-MB (CK-2) 1.16 (<2.37) ng/mL CK-MB (CK-2) Rel Index 0.8 L (1.5-5.0) % Troponin I < 0.012 (0.01-0.034) ng/mL Total Protein 7.1 (6.3-8.2) g/dL Albumin 4.1 (3.5-5.0) g/dL Globulin 3.0 (1.7-4.1) g/dL Albumin/Globulin Ratio 1.4 (1.0-2.8) Lipase 32 (23-300) U/L Discharge Plan Departure Patient Disposition: Home Clinical Impression: Tendonitis of elbow or forearm Discharge Date/Time: 11/30/18 18:14 Interventions: ED Discharge Assessment Last Done: 11/30/18 18:14 Instructions: DI for Tendinitis Activity Restrictions/Additional Instructions: Your lab testing did not show any acute problem today, and after discussion with you I suspect that your lightheadedness was due to long days of working and not having any nourishment today. Your tingling/numbness in your left forearm is consistent with tendinitis, like you have had in the radial nerve before (now in the ulnar nerve). Please start wearing or wrist immobilizer splint and follow up at your primary care clinic to determine whether further treatment may be needed. As we talked about, you should return in the interim if you have new symptoms such as acute weakness, chest pain, difficulty breathing or if you do pass out when you are eating and drinking normally. Prescriptions: No Action aspirin 325 mg Tablet 325 mg PO DAILY RF: 0 buprenorphine-naloxone [Suboxone] 8-2 mg Film 1 film BUCCAL DAILY RF: 0 Referrals: Jorge Carlson MD [Primary Care Provider] - <Nicole Johnson DO - Last Filed: 12/01/18 08:17> Cosign ED Attending Berthaature Attestation: I was immediately available in the department for consultation. Documentation has been reviewed. I agree with assessment and plan.
== END 2018-11-30 18:14 | disposition home or self-care (01) ==
PROVIDERS: Emergency Medicine; Emergency Provider Internal Medicine; Family Provider Family Medicine; PCP Family Medicine
DX: M77.9 Enthesopathy, unspecified (principal); R20.0 Anesthesia of skin; R03.0 Elevated blood-pressure reading, without diagnosis of hypertension; Z79.82 Long term (current) use of aspirin
CPT/HCPCS: 36415; 71045; 80053; 82550; 82553; 83690; 84484; 85025; 85610; 85730; 93005; 99283; 99285

== ENCOUNTER 2020-12-23 19:30 | Emergency (ER) | payer OTHER, MEDICAID, SELFPAY ==
[2020-12-23 19:41] VITALS: BP 158/86; PULSE 97; RESP 18; TEMP 36.9; O2SAT 98; BMI 52.2
--- NOTE | 2020-12-23 20:48 | ED.GENADULT ---
HPI - General Adult General Chief complaint: Dental/Oral Stated complaint: RIGHT SIDE BUTTOM TOOTH PAIN Time Seen by Provider: 12/23/20 20:25 Source: patient Mode of arrival: Family Vehicle Limitations: no limitations History of Present Illness HPI narrative: Patient is a 35-year-old male who has a known dental infection. Is currently on antibiotics. Has seen a dentist. States that over the past couple days he has noticed that there has been a swelling and increasing pain in his right lower jaw. He was sent over from the [place] where he lives because he was told that he needed IV antibiotics. Related Data Home Medications Medication Instructions Recorded Confirmed aspirin 325 mg tablet 325 mg PO DAILY 11/30/18 12/23/20 buprenorphine 8 mg-naloxone 2 mg 1 film BUCCAL DAILY 11/30/18 12/23/20 sublingual film (Suboxone) clindamycin HCl 150 mg capsule 150 mg PO QID 12/23/20 12/23/20 Allergies Allergy/AdvReac Type Severity Reaction Status Date / Time amoxicillin [AMOXICILLIN] Allergy Mild Verified 12/23/20 15:35 azithromycin Allergy Mild Hives Verified 12/23/20 15:35 Review of Systems Constitutional Comments: No fevers ENT Ears, Nose, Mouth, and Throat: Reports as per HPI Respiratory Comments: No problems breathing Integumentary/Breasts Skin/Breast: Reports system reviewed and no additional complaints, except as documented Hematologic/Lymphatic On Anticoagulants: No Patient History Medical History H/O: HTN (hypertension) Obesity Surgical History (Updated 11/30/18 @ 18:29 by Maira Saavedra PA-C) No history of previous surgery Social History Smoking Status: Former smoker Smoking Status: Former smoker tobacco type: cigarettes alcohol intake frequency: 0-2 drinks per day Substance Use Type: former substance user and marijuana Exam Initial Vital Signs Initial Vital Signs: Vital Signs Temperature 98.4 F 12/23/20 19:41 Pulse Rate 97 H 12/23/20 19:41 Respiratory Rate 18 12/23/20 19:41 Blood Pressure 158/86 H 12/23/20 19:41 Pulse Oximetry 98 12/23/20 19:41 Const General: cooperative and healthy appearing HENPA Head: normal to inspection Nose: external nose normal Face and sinus: normal facial exam Mouth: lip normal and tongue normal Teeth and gingiva: other (Obvious abscess right mandibular region) Neck Neck: normal visual inspection Resp Effort & Inspection: normal respiratory effort Skin General: no rashes or lesions noted Extrem General: normal to inspection Psych Appearance: grossly normal and well kempt Procedures Abscess I/D I&D #1: Site: oral Side (if applicable): right Sedation/analgesia: other (Buffered lidocaine) Local Anesthetic: lidocaine 1% and with bicarb Amount of anesthesia used (mL): 3 Technique: incised with #11 blade Irrigation: No Packing used?: none Course Orders Ordered: Discontinued Medications Lidocaine/Sodium Bicarbonate (Lido 1%/Sod Bicarb 8.4% (10ml) 10 Ml Syringe) 10 ml INJ NOW ONE Stop: 12/23/20 20:50 Last Admin: 12/23/20 21:00 Dose: 10 ml Documented by: MARGARET Vital Signs Vital signs: Vital Signs - 8 hr 12/23/20 21:18 Pulse Rate 90 Respiratory Rate 16 Blood Pressure 176/98 H Pulse Oximetry 99 Medical Decision Making MDM Narrative Medical decision making narrative: Patient is nontoxic appearing. No problems breathing or tolerating his secretions. Has an obvious abscess in his right lower mandibular region. Otherwise his dentition is unremarkable. The abscess was drained as described above. He does have has allergy to penicillin. Plan will be is to keep him on his clindamycin and have contact his dentist for definitive treatment. There is no indication for IV antibiotics. He was given return precautions. He expressed understanding and agreement. Discharge Plan Departure Patient Disposition: Home Clinical Impression: Dental abscess Instructions: Tooth Abscess Activity Restrictions/Additional Instructions: Draining the abscess today is most likely going to be very helpful in treating this infection. I recommend that you continue with the clindamycin. Also recommend that tomorrow you contact your dentist for a follow-up. Return to the emergency department for any new or worsening symptoms Prescriptions: No Action aspirin 325 mg Tablet 325 mg PO DAILY RF: 0 buprenorphine-naloxone [Suboxone] 8-2 mg Film 1 film BUCCAL DAILY RF: 0 clindamycin HCl 150 mg capsule 150 mg PO QID RF: 0 Referrals: Nahum Lubin MD [Primary Care Provider] -
[2020-12-23] MEDS: LIDO 1%/SOD BICARB 8.4% (10ML) 10 ML SYRINGE INJ (21:00)
[2020-12-23 21:18] VITALS: BP 176/98; PULSE 90; RESP 16; O2SAT 99
== END 2020-12-23 21:18 | disposition home or self-care (01) ==
PROVIDERS: Emergency Provider Emergency Medicine; Family Provider Family Medicine; PCP Family Medicine
DX: K04.7 Periapical abscess without sinus (principal)
CPT/HCPCS: 10060; 99283